=== PATIENT | male | born 1970 | race Caucasian/White ===

== ENCOUNTER 2016-08-21 19:37 | Emergency (ER) | payer OTHER ==
[~2016-08-21] VITALS: Ht 177.8 cm; Wt 95.3 kg
[~2016-08-21 19:37] MED LIST: ASPIRIN ADULT L81 M1 PO; HYDROCODONE BIT1 T11 PO; IBU800 MG PO; LIPITOR10 MG PO; Motrin,Rufen800 MG PO
[2016-08-21] MEDS ORDERED: NAPROXEN500 M1 PO (19:54)
[2016-08-21] MEDS ORDERED: VOLTAREN50 M1 PO (20:16)
[2016-08-21] MEDS ORDERED: ULTRAM50 MG PO (20:16)
== END 2016-08-21 20:16 | disposition home or self-care (01) ==
LOC: ED 19:37
DX: M54.31 Sciatica, right side (principal); F17.200 Nicotine dependence, unspecified, uncomplicated; Z79.82 Long term (current) use of aspirin; Z79.899 Other long term (current) drug therapy

== ENCOUNTER 2021-04-08 14:44 | Emergency (ER) | payer OTHER ==
[~2021-04-08] VITALS: Ht 180.3 cm; Wt 90.7 kg
[~2021-04-08 14:44] MED LIST changes: +NAPROXEN500 M1 PO; +ULTRAM50 MG PO; +VOLTAREN50 M1 PO
[2021-04-08] MEDS ORDERED: CEPHALEXIN500 M1 PO (15:07)
== END 2021-04-08 15:45 | disposition home or self-care (01) ==
LOC: ED 14:44
DX: T24.321A Burn of third degree of right knee, initial encounter (principal); T24.322A Burn of third degree of left knee, initial encounter; X19.XXXA Contact with other heat and hot substances, initial encounter; Y93.89 Activity, other specified; Y92.89 Other specified places as the place of occurrence of the external cause; Y99.8 Other external cause status

== ENCOUNTER 2022-12-04 16:48 | Emergency (ER) | payer OTHER ==
[~2022-12-04] VITALS: Ht 180.3 cm; Wt 85.7 kg
[~2022-12-04 16:48] MED LIST changes: +CEPHALEXIN500 M1 PO
[2022-12-04 17:28] LABS: BASO % 0.3 % (0.0-1.0); EOS % 0.3 % (1.0-4.0); HEMATOCRIT 48.5 % (42.0-52.0); LYMPH # 1.4 10*3/uL (1.3-4.4); LYMPH % 8.9 % (27.0-41.0); MEAN CORPUSCULAR HGB 29.8 pg (27.0-31.0); MEAN CORPUSCULAR HGB CONC 33.8 g/dl (33.0-37.0); MEAN PLATELET VOLUME 10.1 fl (9.6-12.3); MONO # 1.5 10*3/uL (0.1-1.0); MONO % 9.1 % (3.0-9.0); NEUT # 12.8 10*3/uL (2.3-7.9); NEUT % 80.8 % (47.0-73.0); PLATELET COUNT AUTOMATED 230 10*3/uL (130-400); RED BLOOD COUNT 5.51 10*6/uL (4.50-5.90); RED CELL DISTRI WIDTH 14.5 % (0-14.5); WHITE BLOOD COUNT 15.9 10*3/uL (4.8-10.8)
[2022-12-04 17:38] LABS: ACT PARTIAL THROMBO TIME 26.4 SECONDS (20.0-32.1)
[2022-12-04 17:57] LABS: ALKALINE PHOSPHATASE 85 U/L (46-116); BUN 18 mg/dl (9-23); CHLORIDE 108 mmol/L (98-107); LIPASE 37 U/L (12-53); POTASSIUM 4.2 mmol/L (3.4-5.1); SGPT/ALT 31 U/L (10-49); TOTAL PROTEIN 7.1 gm/dL (6.0-8.0)
[2022-12-04 18:30] LABS: BILIRUBIN Negative (Negative); BLOOD 3+ (Negative); CLARITY Cloudy (Clear); COLOR Yellow (Yellow); GLUCOSE Negative (Negative); KETONE Trace (Negative); LEUKO ESTERASE 1+ (Negative); NITRITE Negative (Negative); PH 5.5 (4.5-8.0)
[2022-12-04 18:37] LABS: BACTERIA 1+; CALCIUM OXALATE CRYSTALS 2+; EPITHELIAL CELLS 0-2; RBC TNTC rbc/hpf (0-2)
[2022-12-04] MEDS ORDERED: ONDANSETRON4 MG SL (19:01)
[2022-12-04] MEDS ORDERED: HYDROCODONE-AC1 EAC1 PO (19:01)
[2022-12-04] MEDS ORDERED: FLOMAX0.4 MG PO (19:01)
== END 2022-12-04 19:44 | disposition home or self-care (01) ==
LOC: ED 16:48
PROVIDERS: Internal Medicine
DX: N13.2 Hydronephrosis with renal and ureteral calculous obstruction (principal); N13.4 Hydroureter; D72.829 Elevated white blood cell count, unspecified; J44.9 Chronic obstructive pulmonary disease, unspecified; E78.00 Pure hypercholesterolemia, unspecified; Z98.890 Other specified postprocedural states